=== PATIENT | male | born 2000 | race Caucasian/White ===

== ENCOUNTER 2022-08-07 13:10 | Emergency (ER) | payer MEDICAID ==
[~2022-08-07] VITALS: Ht 182.9 cm; Wt 68.0 kg
[2022-08-07] MEDS ORDERED: ONDANSETRON HCL 4MG/2ML INJ IV STA (13:26)
[2022-08-07] MEDS ORDERED: MORPHINE SULFATE 4 MG/ML CPJ (NOT FOR IM USE) IV STA (13:26)
[2022-08-07] MEDS ORDERED: SODIUM CHLORIDE 0.9% 1,000 ML IV ONE (13:30)
[2022-08-07 14:19] LABS: HEMATOCRIT. 42.4 % (42.0-52.0); HEMOGLOBIN. 13.9 g/dL (14.0-18.0); MEAN CORPUSCULAR HEMOGLOBIN 27.4 pg (28.0-32.0); MEAN CORPUSCULAR VOLUME 83.6 fL (80.0-94.0); MEAN PLATELET VOLUME 11.3 fl (7.4-10.4); PLATELET 182 x1000/uL (130-400); RED BLOOD CELL COUNT 5.07 mill/uL (4.7-6.1); RED CELL DISTRIBUTION WIDTH 14.9 % (11.6-14.6)
[2022-08-07 14:22] LABS: CHLORIDE 106 mEq/L (98-107)
[2022-08-07 14:26] LABS: PARTIAL THROMBOPLASTIN TIME 21.2 sec (23.4-31.0); PROTHROMBIN TIME 10.7 sec (9.6-11.0)
[2022-08-07 14:30] LABS: *AMPHETAMINES SCREEN URINE NEGATIVE (NEGATIVE); *BARBITURATES SCREEN URINE NEGATIVE (NEGATIVE); *BENZODIAZEPINES SCREEN URINE NEGATIVE (NEGATIVE); *COCAINE SCREEN URINE NEGATIVE (NEGATIVE); CANNABINOID URINE SCREEN PRESUMTIVE POSITIVE (NEGATIVE); METHADONE URINE SCREEN NEGATIVE (NEGATIVE); OPIATES URINE SCREEN NEGATIVE (NEGATIVE); PHENCYCLIDINE URINE SCREEN NEGATIVE (NEGATIVE)
[2022-08-07 14:32] LABS: ETHANOL BLOOD < 10 mg/dL
[2022-08-07] MEDS ORDERED: POTASSIUM CHLORIDE 20MEQ TABLET SR PO ONE (15:30)
[2022-08-07] MEDS ORDERED: ONDANSETRON HCL 4MG/2ML INJ IV ONE (16:15)
[2022-08-07] MEDS ORDERED: KCL 20MEQ/100ML PREMIX 100 ML IV ONE (16:15)
[2022-08-07] MEDS ORDERED: ASPIRIN 81MG TABLET PO ONE (16:45)
[2022-08-07] MEDS ORDERED: IOHEXOL-350 100 ML BOTTLE ONE (16:58)
[2022-08-07] MEDS ORDERED: CEFTRIAXONE 1 G PREMIX 50 ML IV ONE (17:00)
[2022-08-07] MEDS ORDERED: SODIUM CHLORIDE 0.9% 1000ML BAG (SEPSIS BOLUS) IV ONE (17:00)
[2022-08-07 18:04] LABS: PLATELET ESTIMATE NORMAL
[2022-08-07 19:31] VITALS: BP 136/75
== END 2022-08-07 20:21 | disposition short-term general hospital (02) ==
LOC: ER 13:31 → CANBEDREQ 08-08 22:33
DX: A41.9 Sepsis, unspecified organism (principal); R65.20 Severe sepsis without septic shock; D72.829 Elevated white blood cell count, unspecified; R07.89 Other chest pain; R10.13 Epigastric pain; Z20.822 Contact with and (suspected) exposure to COVID-19
CPT/HCPCS: 36415; 71045; 71275; 74174; 80053; 80305; 80320; 83605; 83690; 83880; 84484; 85025; 85610; 85730; 87040; 87086; 87426; 93005; 96361; 96365; 96375; 96376; 99285; C9803; J0696; J2270; J2405; J3480; J7030; Q9967; Z7610; G0480